=== PATIENT | female | born 1995 | race Caucasian/White ===

== ENCOUNTER → 2016-06-12 | Outpatient (CLI) | payer OTHER ==
[~2016-06-12] MED LIST: CELEXA40 MG PO; JUNEL 1/20 20 M1 TAB; NORCO 325 MG-51 TAB PO
== END ==
LOC: COL.RAD 07:53
DX: R05 Cough (principal)

== ENCOUNTER → 2016-06-14 | Outpatient (CLI) | payer OTHER | LOC: BHSO 08:47 | DX: F41.1 Generalized anxiety disorder (principal) ==

== ENCOUNTER → 2016-06-27 | Outpatient (CLI) | payer OTHER | LOC: BHSO 12:17 | DX: F41.1 Generalized anxiety disorder (principal) ==

== ENCOUNTER → 2016-10-24 | Outpatient (CLI) | payer OTHER | LOC: COL.PUL 09:45 | DX: R06.02 Shortness of breath (principal) | CPT/HCPCS: J7674 ==

== ENCOUNTER 2016-12-05 09:58 | Day surgery (SDC) | payer OTHER ==
[~2016-12-05] VITALS: Ht 162.6 cm; Wt 67.1 kg
[2016-12-05 10:45] VITALS: BP 107/90; PULSE 65; TEMP 98.2
[2016-12-05] MEDS ORDERED: CELEXA40 MG PO (11:01)
[2016-12-05] MEDS ORDERED: JUNEL 1/20 20 M1 TAB (11:02)
[2016-12-05 12:49] VITALS: BP 113/71; PULSE 77; TEMP 97.5
[2016-12-05] MEDS ORDERED: NORCO 325 MG-51 TAB PO (13:03)
[2016-12-05 13:05] VITALS: BP 109/73; PULSE 67
[2016-12-05 13:50] VITALS: BP 101/60; PULSE 61
== END 2016-12-05 15:07 | disposition home or self-care (01) ==
LOC: SDCO 09:58
DX: M20.21 Hallux rigidus, right foot (principal); F41.9 Anxiety disorder, unspecified
CPT/HCPCS: J0690; J2704; J7120

== ENCOUNTER → 2017-01-29 | Outpatient (CLI) | payer OTHER | LOC: BHSO 09:54 | DX: F41.1 Generalized anxiety disorder (principal) ==

== ENCOUNTER → 2017-01-30 | Outpatient (CLI) | payer OTHER | LOC: BHSO 14:43 | DX: F41.1 Generalized anxiety disorder (principal) ==

== ENCOUNTER → 2017-03-05 | Outpatient (CLI) | payer OTHER | LOC: BHSO 14:16 | DX: F41.1 Generalized anxiety disorder (principal) ==